=== PATIENT | female | born 1965 | race Caucasian/White ===

== ENCOUNTER 2024-06-10 16:06 | Emergency (ER) | payer SELFPAY ==
[2024-06-10 16:35] VITALS: BP 149/76; PULSE 68; RESP 19; TEMP 37.3; O2SAT 97; BMI 27.6
--- NOTE | 2024-06-10 16:47 | ED_ITS ---
Discharge Plan Disposition Patient Disposition: Home, Self-Care Condition: Good Prescriptions Prescriptions: New amoxicillin-pot clavulanate 875-125 mg Tablet 1 tab PO Q12H Qty: 20 0RF Referrals Follow up/Referrals: Provider,Referral, [Primary Care Provider] - See instructions Activity Restrictions/Add. Instructions Additional Instructions/Restrictions: Gargle warm salt water Take medication as prescribed Follow up with Dentist, call and make appointment Return if needed Straight to ER if any life threatening symptoms Clinical Impressions Clinical Impression: Dental infection Instructions Patient Instructions: Amoxicillin and Clavulanic Acid, DI for Tooth Abscess Print Language Print Language: Faroese Discharge ED Provider: Dottie Cano Cristian [facility] HPI General Stated complaint: right size jaw pain Mode of Arrival: Ambulatory Source of Information: Patient Limitations: No Limitations Time Seen by Provider: 06/10/24 16:47 Description of Symptoms (Recalled from Triage Doc. by RN): PATIENT C/O PAIN TO RIGHT CHEEK AREA SINCE YESTERDAY HEENT Symptoms (Recalled from RN notes): Yes Resp Symptoms (Recalled from RN notes): No Skin Symptoms (Recalled from RN notes): No MS Symptoms (Recalled from RN notes): No Functional Status (Recalled from RN notes): WNL History of Present Illness Provider Complaint: Patient states that she thinks she has a bad tooth States that she has several bad teeth on her right back and she has been having pain in her gum area and in her right upper jaw area States that she is new to the area and needs to find a dentist but hasnt done so yet Related Data Previous Rx's ?Medication ?Instructions ?Recorded amoxicillin 875 mg-potassium 1 tab PO Q12H #20 tabs 06/10/24 clavulanate 125 mg tablet Allergies Allergy/AdvReac Type Severity Reaction Status Date / Time egg Allergy Verified 11/20/23 15:42 Worker's Comp Is this a Worker's Comp case?: No [facility] Disclaimer: The information contained in this section may have been updated after the patient was seen, as this information can be updated by other users. Medical History (Updated 06/10/24 @ 16:59 by Dottie Cano APRN) No significant past medical history Social History Smoking Status: Unknown if ever smoked alcohol intake: never current occupational status: employed Travel in the last 8 weeks: None ROS Obtained: Yes All systems reviewed & no additional complaints except as documented and Yes Systems reviewed as appropriate & no additional complaints except as documented Constitutional Constitutional: Reports system reviewed and no additional complaints, except as documented and Reports as per HPI Eyes Eyes: Reports system reviewed and no additional complaints, except as documented and Reports as per HPI ENT Ears, Nose, Mouth, and Throat: Reports system reviewed and no additional complaints, except as documented, Reports as per HPI and Reports dental pain Comments: reports has several bad teeth in the back on her right upper, thinks she may have a dental infection Cardiovascular Cardiovascular: Reports system reviewed and no additional complaints, except as documented and Reports as per HPI Respiratory Respiratory: Reports system reviewed and no additional complaints, except as documented and Reports as per HPI Gastrointestinal Gastrointestingal: Reports system reviewed and no additional complaints, except as documented and as per HPI Physical Exam General General appearance: alert and in no apparent distress ENT ENT exam: Present mucous membranes moist Expanded ENT Exam Teeth exam: Present dental caries and other (multiple broken decaying teeth noted in right upper gumline with mild redness and swelling) Respiratory Respiratory exam: Present normal lung sounds bilaterally; Absent respiratory distress or wheezes Cardiovascular Cardiovascular exam: Present regular rate, normal rhythm and normal heart sounds Abdominal Exam Abdominal exam: Present soft and normal bowel sounds; Absent distention or tenderness Neurological Exam Neurological exam: Present alert, oriented X3 and normal gait Medical Decision Making Medical Records Screening: Per USPSTF and CDC recommendations, given the prevalence of disease in our region, it is our hospital?s policy to screen for HIV and viral Hepatitis for all patients aged 18 and over and those with ongoing risk factors. Boaz Inquiry Pt receiving controlled substance: No Boaz was queried for this patient: No Vital Signs: 06/10/24 16:35 Temperature 99.1 F Temperature Source Oral Pulse Rate [Left Brachial] 68 Respiratory Rate 19 Blood Pressure [Left Arm] 149/76 H Blood Pressure Mean [Left Arm] 100 Blood Pressure Source [Left Arm] Automatic Cuff Blood Pressure Position [Left Arm] Sitting 02 Sat by Pulse Oximetry 97 Oxygen Delivery Method Room Air Medical Decision Narrative: Patient states that she has a hx of her jaw popping in and out, patient able to open mouth and talk without difficutly states feels like it is tooth infected
[2024-06-10 17:01] VITALS: BP 149/76; PULSE 68; RESP 19; TEMP 37.3; O2SAT 97
== END 2024-06-10 17:04 | disposition home or self-care (01) ==
PROVIDERS: Emergency Provider Nurse Practitioner
DX: K04.7 Periapical abscess without sinus (principal); K08.89 Other specified disorders of teeth and supporting structures
CPT/HCPCS: 99212; G0381

== ENCOUNTER 2025-06-11 11:52 | Emergency (ER) | payer OTHER, SELFPAY ==
[2025-06-11] VITALS (9 sets, daily range): BP systolic 158–215; BP diastolic 98–113; PULSE 63–96; RESP 12–19; TEMP 36.6–36.7; O2SAT 96–100; BMI 24.7
--- NOTE | 2025-06-11 11:57 | HMH.EDGENADL ---
Discharge Plan Disposition Patient Disposition: Home, Self-Care Prescriptions Prescriptions: New amlodipine 5 mg tablet 5 mg PO DAILY Qty: 30 0RF No Action amoxicillin-pot clavulanate 875-125 mg Tablet 1 tab PO Q12H Qty: 20 0RF Referrals Follow up/Referrals: García Hernández MD [Primary Care Provider, Family Practice] - See instructions Activity Restrictions/Add. Instructions Additional Instructions/Restrictions: Increase fluids and rest. Take the meds as directed. Please follow-up Clinical Impressions Clinical Impression: Carbon monoxide exposure, Hypertension Instructions Patient Instructions: Carbon Monoxide Poisoning, DI for High Blood Pressure Print Language Print Language: [place] Islander Discharge ED Provider: Magali Beckwith General Adult HPI <Magali Beckwith MD - Last Filed: 06/11/25 14:25> General Chief complaint: Headache Stated complaint: High BP Time Seen by Provider: 06/11/25 11:56 History of Present Illness HPI narrative: Patient is a 59-year-old with past medical history Related Data Previous Rx's ?Medication ?Instructions ?Recorded amoxicillin 875 mg-potassium 1 tab PO Q12H #20 tabs 06/10/24 clavulanate 125 mg tablet amlodipine 5 mg tablet 5 mg PO DAILY #30 tabs 06/11/25 Allergies Allergy/AdvReac Type Severity Reaction Status Date / Time egg Allergy Verified 11/20/23 15:42 <Aida Pinedo (ED), TELEPHONE ORDER CLERK - Last Filed: 06/11/25 13:34> History of Present Illness HPI narrative: Patient is a 59-year-old with no past medical history. Patient was at her dentist getting her dentures today and they took her blood pressure several times and the readings were anywhere from 164/115 to 187/105 patient when I went in to assess her blood pressure was 207/113. She says she is petrified of dentists and was sick to her stomach because she was going to the dentist to get her dentures today. She says she feels fine. She does have a small headache in the frontal part of her head. She has had this for a little while. She says that she has been out of power for 12 days and have been using a daniel heater and she wonders if the headache is from the daniel heater. She takes no medications at home. She has not been diagnosed of hypertension. She otherwise feels well today. She is scared to have a stroke. [facility] <Magali Beckwith MD - Last Filed: 06/11/25 14:25> [facility] Disclaimer: The information contained in this section may have been updated after the patient was seen, as this information can be updated by other users. Medical History (Updated 06/11/25 @ 13:40 by Aida Pinedo (ED), TELEPHONE ORDER CLERK) No significant past medical history Social History (Updated 06/10/24 @ 16:59 by Dottie Cano TELEPHONE ORDER CLERK) Smoking Status: Current every day smoker alcohol intake: never current occupational status: employed Travel in the last 8 weeks?: None Have you lived/traveled outside US in past 30 days?: No Contact w/someone who lives/traveled outside US past 30 days?: No Exposure to someone with infectious disease in past 14 days?: No Do you have a fever (greater than 100.4 F or 38 C)?: No Have you tested positive for COVID-19?: No Exposed to someone with COVID-19 in past 14 days?: No Do you have a sore throat?: No Do you have a cough?: No Do you have any weakness?: No Do you have any diarrhea?: No Are you experiencing any unusual bleeding?: No Do you have any muscle aches/pain?: No Do you have any abdominal pain?: No Are you experiencing loss of taste or smell?: No Other Medical History Have you received the Flu Vaccine for this season: No Have you received the Pneumonia Vaccine: No <Aida Pinedo (ED), TELEPHONE ORDER CLERK - Last Filed: 06/11/25 13:34> ROS Obtained: Yes Systems reviewed as appropriate & no additional complaints except as documented Constitutional Constitutional: Reports as per HPI Physical Exam <Aida Pinedo (ED), TELEPHONE ORDER CLERK - Last Filed: 06/11/25 13:34> General General appearance: alert and in no apparent distress Head Head exam: normocephalic Eye Eye exam: Present PERRL and EOMI ENT ENT exam: Present normal oropharynx and mucous membranes moist Neck Neck exam: Present full ROM and trachea midline Respiratory Respiratory exam: Present normal lung sounds bilaterally Cardiovascular Cardiovascular exam: Present regular rate, normal rhythm, normal heart sounds, +S1 and +S2 Extremities Exam Extremities exam: Present full ROM and normal capillary refill Neurological Exam Neurological exam: Present alert and oriented X3 Skin Skin exam: Present warm and dry Medical Decision Making <Magali Beckwith MD - Last Filed: 06/11/25 14:25> Medical Records Screening: Per USPSTF and CDC recommendations, given the prevalence of disease in our region, it is our hospital?s policy to screen for HIV and viral Hepatitis for all patients aged 18 and over and those with ongoing risk factors. Vital Signs: 06/11/25 11:58 06/11/25 12:00 06/11/25 12:00 Temperature 97.8 F Temperature Source Oral Pulse Rate 96 H 92 H Pulse Rate [Right] 90 Respiratory Rate 18 Blood Pressure 215/113 H 207/113 H Blood Pressure [Right Arm] 215/113 H Blood Pressure Mean Blood Pressure Mean [Right Arm] 147 Blood Pressure Source Blood Pressure Source [Right Arm] Automatic Cuff Blood Pressure Position Blood Pressure Position [Right Arm] Sitting 02 Sat by Pulse Oximetry 98 97 96 Oxygen Delivery Method Room Air Oxygen Flow Rate (LPM) 06/11/25 12:15 06/11/25 12:30 06/11/25 12:30 Temperature Temperature Source Pulse Rate 95 H Pulse Rate [Right] Respiratory Rate 16 Blood Pressure 183/98 H Blood Pressure [Right Arm] Blood Pressure Mean 126 Blood Pressure Mean [Right Arm] Blood Pressure Source Blood Pressure Source [Right Arm] Blood Pressure Position Blood Pressure Position [Right Arm] 02 Sat by Pulse Oximetry 97 98 Oxygen Delivery Method Non-Rebreather Oxygen Flow Rate (LPM) 10 06/11/25 13:00 06/11/25 13:17 06/11/25 13:18 Temperature Temperature Source Pulse Rate 64 63 Pulse Rate [Right] Respiratory Rate 19 Blood Pressure 207/111 H 158/98 H Blood Pressure [Right Arm] Blood Pressure Mean 135 Blood Pressure Mean [Right Arm] Blood Pressure Source Blood Pressure Source [Right Arm] Blood Pressure Position Blood Pressure Position [Right Arm] 02 Sat by Pulse Oximetry 96 99 Oxygen Delivery Method Oxygen Flow Rate (LPM) 06/11/25 13:30 06/11/25 13:59 Temperature 98.0 F Temperature Source Oral Pulse Rate 74 71 Pulse Rate [Right] Respiratory Rate 12 18 Blood Pressure 173/102 H 173/102 H Blood Pressure [Right Arm] Blood Pressure Mean Blood Pressure Mean [Right Arm] Blood Pressure Source Automatic Cuff Blood Pressure Source [Right Arm] Blood Pressure Position Sitting Blood Pressure Position [Right Arm] 02 Sat by Pulse Oximetry 100 Oxygen Delivery Method Room Air Oxygen Flow Rate (LPM) Lab Data Lab Results 06/11/25 12:05: WBC 7.3, RBC 4.99, Hgb 15.1, Hct 45.9, MCV 92.0, MCH 30.3, MCHC 32.9, RDW 12.6, Plt Count 238, MPV 9.9, Neut % (Auto) 61.7, Lymph % (Auto) 30.4, [place] % (Auto) 6.1, Eos % (Auto) 1.1, Baso % (Auto) 0.4, Neut # (Auto) 4.5, Lymph # (Auto) 2.2, [place] # (Auto) 0.5, Eos # (Auto) 0.1, Baso # (Auto) 0.0, Sodium 145, Potassium 3.6, Chloride 106, Carbon Dioxide 26, BUN 11, Creatinine 0.70, Estimated Creat Clear 87, Estimated GFR 86, Est GFR ( Amer) 104, Glucose 101 H, Calcium 9.0, Magnesium 2.4 H, Total Bilirubin 0.8, AST 25, ALT 16, Alkaline Phosphatase 64, Troponin I < 0.01, Total Protein 8.3 H, Albumin 5.0, Globulin 3.3 H, Albumin/Globulin Ratio 1.5, Lipase 145 06/11/25 12:11: Carboxyhemoglobin 11.7 H* 06/11/25 13:14: Carboxyhemoglobin 7.9 H* 06/11/25 12:05 06/11/25 12:05 Orders (Tests/Meds): ED MEDICATIONS Discontinued Medications Generic Name Dose Route Start Last Admin Trade Name Freq PRN Reason Stop Dose Admin Acetaminophen 1,000 mg 06/11/25 12:14 06/11/25 12:21 Acetaminophen 1,000mg/100ml Vial IV 06/11/25 12:15 1,000 mg ONCE ONE Administration Amlodipine Besylate 5 mg 06/11/25 12:09 06/11/25 12:17 Amlodipine 5mg Tablet PO 06/11/25 12:10 5 mg ONCE ONE Administration Sodium Chloride 1,000 mls @ 999 mls/hr 06/11/25 12:14 06/11/25 13:35 Sod Chlor 0.9% 1000ml Bag IV 06/11/25 13:14 Infused .Q1H1M ONE Infusion Sodium Chloride 10 ml 06/11/25 11:56 Sodium Chloride 0.9% 10ml Flush Syringe IV 07/11/25 11:55 NEEDED PRN Maintain IV Site ORDERS Category Date Time Status CBC w/Auto Diff [Complete Blood Count Auto Diff] Stat Lab 06/11/25 12:05 Completed Comprehensive Metabolic Panel Stat Lab 06/11/25 12:05 Results Lipase Stat Lab 06/11/25 12:05 Results Magnesium Stat Lab 06/11/25 12:05 Results Troponin I Stat Lab 06/11/25 12:05 Completed Carboxyhemoglobin Stat RT 06/11/25 12:11 Completed Carboxyhemoglobin Stat RT 06/11/25 13:14 Completed ECG Request Stat Y 06/11/25 11:56 Stop Req Medical Decision Narrative: patient is a 59-year-old female presenting to the emergency department for evaluation of elevated blood pressure at the dentist today, headache. Patient is hemodynamically stable and nontoxic-appearing upon arrival, afebrile. Differential diagnosis includes, carbon monoxide poisoning, hypertension, medical anxiety, among others. Workup will be conducted with hematologic labs including a carboxy hemoglobin. Initial inventions include crystalloid bolus, analgesic and oxygen. 1318 recheck blood pressure was 158/98. Patient got up to go to the bathroom and feels better. We just sent her new carboxyhemoglobin after an hour of nonrebreather. Hoping that her number is at least under 10. We have already discussed with her that she should not go back to the [facility] that she has been staying in. Dr. Beckwith saw patient as well. Patient's labs came back as white count 7.3 other labs on the CBC were normal, carboxyhemoglobin was 11.7 so we placed patient on nonrebreather for an hour to bring that down under 10. The electrolytes were normal. Troponin was less than 0.01.No imaging was required at this visit. It was considered but not required. We got her carboxyhemoglobin back and her second 1 was 7.9. She feels much improved and is ready to go home. I have re iterated that she needs to remove the heater from her home. Get new heating. Patient will be discharged home with blood pressure meds. She takes this amlodipine until she sees Dr. Llamas on Saturday. I was consulted by the VIC, and we discussed the complexity of problems being addressed. I approved the treatment and management plan for this patient's care in the emergency department, thus performing a substantial portion of the medical decision making. Magali Beckwith MD <Aida Pinedo (ED), TELEPHONE ORDER CLERK - Last Filed: 06/11/25 13:34> Boaz Inquiry Pt receiving controlled substance: No Boaz was queried for this patient: No Vital Signs: 06/11/25 11:58 06/11/25 12:00 06/11/25 12:00 Temperature 97.8 F Temperature Source Oral Pulse Rate 96 H 92 H Pulse Rate [Right] 90 Respiratory Rate 18 Blood Pressure 215/113 H 207/113 H Blood Pressure [Right Arm] 215/113 H Blood Pressure Mean Blood Pressure Mean [Right Arm] 147 Blood Pressure Source Blood Pressure Source [Right Arm] Automatic Cuff Blood Pressure Position Blood Pressure Position [Right Arm] Sitting 02 Sat by Pulse Oximetry 98 97 96 Oxygen Delivery Method Room Air Oxygen Flow Rate (LPM) 06/11/25 12:15 06/11/25 12:30 06/11/25 12:30 Temperature Temperature Source Pulse Rate 95 H Pulse Rate [Right] Respiratory Rate 16 Blood Pressure 183/98 H Blood Pressure [Right Arm] Blood Pressure Mean 126 Blood Pressure Mean [Right Arm] Blood Pressure Source Blood Pressure Source [Right Arm] Blood Pressure Position Blood Pressure Position [Right Arm] 02 Sat by Pulse Oximetry 97 98 Oxygen Delivery Method Non-Rebreather Oxygen Flow Rate (LPM) 10 06/11/25 13:00 06/11/25 13:17 06/11/25 13:18 Temperature Temperature Source Pulse Rate 64 63 Pulse Rate [Right] Respiratory Rate 19 Blood Pressure 207/111 H 158/98 H Blood Pressure [Right Arm] Blood Pressure Mean 135 Blood Pressure Mean [Right Arm] Blood Pressure Source Blood Pressure Source [Right Arm] Blood Pressure Position Blood Pressure Position [Right Arm] 02 Sat by Pulse Oximetry 96 99 Oxygen Delivery Method Oxygen Flow Rate (LPM) 06/11/25 13:30 06/11/25 13:59 Temperature 98.0 F Temperature Source Oral Pulse Rate 74 71 Pulse Rate [Right] Respiratory Rate 12 18 Blood Pressure 173/102 H 173/102 H Blood Pressure [Right Arm] Blood Pressure Mean Blood Pressure Mean [Right Arm] Blood Pressure Source Automatic Cuff Blood Pressure Source [Right Arm] Blood Pressure Position Sitting Blood Pressure Position [Right Arm] 02 Sat by Pulse Oximetry 100 Oxygen Delivery Method Room Air Oxygen Flow Rate (LPM) Lab Data Lab Results 06/11/25 12:05: WBC 7.3, RBC 4.99, Hgb 15.1, Hct 45.9, MCV 92.0, MCH 30.3, MCHC 32.9, RDW 12.6, Plt Count 238, MPV 9.9, Neut % (Auto) 61.7, Lymph % (Auto) 30.4, [place] % (Auto) 6.1, Eos % (Auto) 1.1, Baso % (Auto) 0.4, Neut # (Auto) 4.5, Lymph # (Auto) 2.2, [place] # (Auto) 0.5, Eos # (Auto) 0.1, Baso # (Auto) 0.0, Sodium 145, Potassium 3.6, Chloride 106, Carbon Dioxide 26, BUN 11, Creatinine 0.70, Estimated Creat Clear 87, Estimated GFR 86, Est GFR ( Amer) 104, Glucose 101 H, Calcium 9.0, Magnesium 2.4 H, Total Bilirubin 0.8, AST 25, ALT 16, Alkaline Phosphatase 64, Troponin I < 0.01, Total Protein 8.3 H, Albumin 5.0, Globulin 3.3 H, Albumin/Globulin Ratio 1.5, Lipase 145 06/11/25 12:11: Carboxyhemoglobin 11.7 H* 06/11/25 13:14: Carboxyhemoglobin 7.9 H* Orders (Tests/Meds): ED MEDICATIONS Discontinued Medications Generic Name Dose Route Start Last Admin Trade Name Freq PRN Reason Stop Dose Admin Acetaminophen 1,000 mg 06/11/25 12:14 06/11/25 12:21 Acetaminophen 1,000mg/100ml Vial IV 06/11/25 12:15 1,000 mg ONCE ONE Administration Amlodipine Besylate 5 mg 06/11/25 12:09 06/11/25 12:17 Amlodipine 5mg Tablet PO 06/11/25 12:10 5 mg ONCE ONE Administration Sodium Chloride 1,000 mls @ 999 mls/hr 06/11/25 12:14 06/11/25 13:35 Sod Chlor 0.9% 1000ml Bag IV 06/11/25 13:14 Infused .Q1H1M ONE Infusion Sodium Chloride 10 ml 06/11/25 11:56 Sodium Chloride 0.9% 10ml Flush Syringe IV 07/11/25 11:55 NEEDED PRN Maintain IV Site ORDERS Category Date Time Status CBC w/Auto Diff [Complete Blood Count Auto Diff] Stat Lab 06/11/25 12:05 Completed Comprehensive Metabolic Panel Stat Lab 06/11/25 12:05 Results Lipase Stat Lab 06/11/25 12:05 Results Magnesium Stat Lab 06/11/25 12:05 Results Troponin I Stat Lab 06/11/25 12:05 Completed Carboxyhemoglobin Stat RT 06/11/25 12:11 Completed Carboxyhemoglobin Stat RT 06/11/25 13:14 Completed ECG Request Stat Y 06/11/25 11:56 Stop Req Medical Decision Narrative: patient is a 59-year-old female presenting to the emergency department for evaluation of elevated blood pressure at the dentist today, headache. Patient is hemodynamically stable and nontoxic-appearing upon arrival, afebrile. Differential diagnosis includes, carbon monoxide poisoning, hypertension, medical anxiety, among others. Workup will be conducted with hematologic labs including a carboxy hemoglobin. Initial inventions include crystalloid bolus, analgesic and oxygen. 1318 recheck blood pressure was 158/98. Patient got up to go to the bathroom and feels better. We just sent her new carboxyhemoglobin after an hour of nonrebreather. Hoping that her number is at least under 10. We have already discussed with her that she should not go back to the [facility] that she has been staying in. Dr. Beckwith saw patient as well. Patient's labs came back as white count 7.3 other labs on the CBC were normal, carboxyhemoglobin was 11.7 so we placed patient on nonrebreather for an hour to bring that down under 10. The electrolytes were normal. Troponin was less than 0.01.No imaging was required at this visit. It was considered but not required. We got her carboxyhemoglobin back and her second 1 was 7.9. She feels much improved and is ready to go home. I have re iterated that she needs to remove the heater from her home. Get new heating. Patient will be discharged home with blood pressure meds. She takes this amlodipine until she sees Dr. Llamas on Saturday. Critical Care <Aida Pinedo (ED), TELEPHONE ORDER CLERK - Last Filed: 06/11/25 13:34> Critical Care Time Critical Care Time: No
--- NOTE | 2025-06-11 12:15 | PC.NURSE ---
RT notified of carboxyhemoglobin
[2025-06-11] MEDS: AMLODIPINE 5MG TABLET 5 MG PO (12:17)
[2025-06-11 12:19] LABS: Hematocrit 45.9 % (37.0-47.0); Hemoglobin 15.1 g/dL (12.2-16.2); Immature Granulocytes % 0.3 %; Mean Corpuscular HGB Conc 32.9 g/dL (31.8-35.4); Mean Corpuscular Hemoglobin 30.3 pg (27.0-31.2); Mean Corpuscular Volume 92.0 fl (81-99); Nucleated Red Blood Cells % 0 %; Platelet Count 238 K/mm3 (142-424); Red Blood Count 4.99 M/mm3 (4.20-5.40); Red Cell Distribution Width-SD 42.6 fL; White Blood Count 7.3 K/mm3 (4.8-10.8)
[2025-06-11] MEDS: 0.9 % SODIUM CHLORIDE 1000ML 1,000 ML 999 ML IV (12:21)
[2025-06-11] MEDS: ACETAMINOPHEN 1,000MG/100ML VIAL 1000 MG IV (12:21)
[2025-06-11 12:22] LABS: Carboxyhemoglobin 11.7 (0.0-5.0)
--- NOTE | 2025-06-11 12:30 | PC.NURSE ---
NRB placed at 10L per Tang REECE order
[2025-06-11 12:32] LABS: Albumin Level 5.0 g/dl (3.5-5.0); Chloride 106 mmol/L (98-107)
[2025-06-11 12:33] LABS: Potassium 3.6 mmoL/L (3.5-5.1); Sodium 145 mmol/L (136-145)
[2025-06-11 12:35] LABS: Alanine Aminotransferase 16 U/L (12-78); Alkaline Phosphatase 64 U/L (38-126); Aspartate Amino Transferase 25 U/L (14-36); Bilirubin,Total 0.8 mg/dl (0.2-1.3); Blood Urea Nitrogen 11 mg/dl (7-17); Creatinine Clearance Estimated 87 mL/min (50-200); Creatinine,Serum 0.70 mg/dl (0.52-1.04); Estimated Glomerular Filt Rate 86 ml/min (>60); GFR (African American) 104 ML/MIN (>60); Total Protein,Serum 8.3 g/dl (6.3-8.2)
[2025-06-11 12:36] LABS: Albumin/Globulin Ratio 1.5 (1.1-1.8); Calcium 9.0 mg/dl (8.4-10.2); Globulin 3.3 g/dL (1.3-3.2); Glucose 101 mg/dl (74-100); Lipase 145 U/L (23-300); Magnesium 2.4 mg/dl (1.6-2.3)
[2025-06-11 12:38] LABS: Troponin I < 0.01 ng/ml (0.00-0.034)
--- NOTE | 2025-06-11 13:22 | PC.NURSE ---
Pt ambulatory to the bathroom with a steady gate
[2025-06-11 13:23] LABS: Carboxyhemoglobin 7.9 (0.0-5.0)
[2025-06-11 16:05] LABS: Anion Gap 16.6 mEq/L (5-15); Carbon Dioxide 26 mmol/L (22.0-30.0)
== END 2025-06-11 14:00 | disposition home or self-care (01) ==
PROVIDERS: Nurse Practitioner; Emergency Provider Student in an Organized Health Care Education/Training Program; PCP Family Medicine
DX: R79.81 Abnormal blood-gas level (principal); R51.9 Headache, unspecified; I10 Essential (primary) hypertension; Z77.29 Contact with and (suspected) exposure to other hazardous substances
CPT/HCPCS: 80053; 82375; 83690; 83735; 84484; 85025; 93005; 96361; 96374; 99285; J0131; J7030

== ENCOUNTER 2025-06-15 07:15 | Emergency (ER) | payer OTHER, SELFPAY ==
[2025-06-15 07:25] VITALS: BP 181/108; PULSE 104; RESP 19; TEMP 36.6; O2SAT 99; BMI 24.7
[2025-06-15 07:30] VITALS: BP 160/102; PULSE 90; O2SAT 99
--- NOTE | 2025-06-15 07:32 | XR_ITS ---
FINAL REPORT CLINICAL HISTORY: Chest discomfort FINDINGS: A portable view of the chest is obtained. There is no prior exam for comparison. Cardiac and mediastinal silhouettes are normal. The lungs are clear. There is no pleural effusion or pneumothorax. IMPRESSION: No acute process on this portable exam. Reviewed, Interpreted and Dictated by Sumi Menard MD Transcribed by Saskia Chase Authenticated and [facility]
--- NOTE | 2025-06-15 07:32 | HMH.EDGENADL ---
Discharge Plan Disposition Patient Disposition: Home, Self-Care Prescriptions Prescriptions: No Action amoxicillin-pot clavulanate 875-125 mg Tablet 1 tab PO Q12H Qty: 20 0RF amlodipine 5 mg tablet 5 mg PO DAILY Qty: 30 0RF Referrals Follow up/Referrals: García Hernández MD [Primary Care Provider, Family Practice] - See instructions Activity Restrictions/Add. Instructions Additional Instructions/Restrictions: Your blood pressure continues to be elevated. I encourage you to follow-up with your primary care doctor this afternoon for your elevated blood pressure. Your carbon oxide level was slightly elevated I do encourage you to avoid staying in close spaces with propane heaters if possible as this can lead to carbon oxide poisoning. If you develop any new or worsening symptoms, such as headache, confusion, nausea or vomiting, return to the emergency department for evaluation. Clinical Impressions Clinical Impression: Hypertension Print Language Print Language: Slovak Discharge ED Provider: Donte Wolf Adult HPI General Chief complaint: PAIN Stated complaint: High Blood Pressure Time Seen by Provider: 06/15/25 07:34 History of Present Illness HPI narrative: Mari Green is a 59-year-old female who presents to the emergency department for complaints of elevated blood pressure. Patient states that she was seen in the emergency department on Saturday and had been using a body heater in her RV and had a headache and elevated blood pressure at that time. She was told that her carbon oxide level was elevated she was treated with oxygen and her symptoms improved. She states that since then, she has mainly been staying with her son but intermittently goes in and out of her RV that uses a propane heater. She states that she spent some time in there last night and developed a mild headache that has since resolved. She states that she went back into the RV this morning and checked her blood pressure and it was elevated when she got to work this morning to over 200 systolic. She states that on Saturday she was prescribed blood pressure medication that she has been taking daily. She states that she has not had issues with her blood pressure before. She denies any blurry vision, nausea, vomiting, diarrhea or fever. She states that she has a funny feeling in my chest but denies any shortness of breath. She notes that she has an appointment with her primary care doctor at 1:00 this afternoon Related Data Previous Rx's ?Medication ?Instructions ?Recorded amoxicillin 875 mg-potassium 1 tab PO Q12H #20 tabs 06/10/24 clavulanate 125 mg tablet amlodipine 5 mg tablet 5 mg PO DAILY #30 tabs 06/11/25 Allergies Allergy/AdvReac Type Severity Reaction Status Date / Time egg Allergy Verified 11/20/23 15:42 [facility] Disclaimer: The information contained in this section may have been updated after the patient was seen, as this information can be updated by other users. Medical History (Updated 06/15/25 @ 08:33 by Donte Wolf MD) No significant past medical history Social History (Updated 06/10/24 @ 16:59 by Dottie Cano APRN) Smoking Status: Current every day smoker alcohol intake: never current occupational status: employed Travel in the last 8 weeks?: None Have you lived/traveled outside [place] in past 30 days?: No Contact w/someone who lives/traveled outside [place] past 30 days?: No Exposure to someone with infectious disease in past 14 days?: No Do you have a fever (greater than 100.4 F or 38 C)?: No Have you tested positive for COVID-19?: No Exposed to someone with COVID-19 in past 14 days?: No Do you have a sore throat?: No Do you have a cough?: No Do you have any weakness?: No Do you have any diarrhea?: No Are you experiencing any unusual bleeding?: No Do you have any muscle aches/pain?: No Do you have any abdominal pain?: No Are you experiencing loss of taste or smell?: No Other Medical History Have you received the Flu Vaccine for this season: No Have you received the Pneumonia Vaccine: No ROS Obtained: Yes Systems reviewed as appropriate & no additional complaints except as documented Physical Exam General General appearance: alert, in no apparent distress and anxious Head Head exam: atraumatic Eye Eye exam: Present normal appearance ENT ENT exam: Present normal external ear exam Neck Neck exam: Present full ROM Chest Chest inspection: Present symmetric chest wall rise Respiratory Respiratory exam: Present normal lung sounds bilaterally; Absent respiratory distress, wheezes or stridor Cardiovascular Cardiovascular exam: Present regular rate and normal rhythm Abdominal Exam Abdominal exam: Present soft; Absent tenderness or guarding Extremities Exam Extremities exam: Present normal inspection Back Exam Back exam: Present normal inspection Neurological Exam Neurological exam: Present alert and oriented X3 Psychiatric Psychiatric exam: Present normal affect Skin Skin exam: Present warm and dry Medical Decision Making Medical Records Screening: Per USPSTF and CDC recommendations, given the prevalence of disease in our region, it is our hospital?s policy to screen for HIV and viral Hepatitis for all patients aged 18 and over and those with ongoing risk factors. [place] Inquiry Pt receiving controlled substance: No Vital Signs: 06/15/25 07:25 06/15/25 07:30 06/15/25 08:00 Temperature 97.9 F Temperature Source Oral Pulse Rate 90 84 Pulse Rate [Left Radial] 104 H Respiratory Rate 19 Blood Pressure 160/102 H 166/99 H Blood Pressure [Right Arm] 181/108 H Blood Pressure Mean [Right Arm] 132 02 Sat by Pulse Oximetry 99 99 98 Oxygen Delivery Method Room Air 06/15/25 08:22 Temperature Temperature Source Pulse Rate 88 Pulse Rate [Left Radial] Respiratory Rate Blood Pressure 165/105 H Blood Pressure [Right Arm] Blood Pressure Mean [Right Arm] 02 Sat by Pulse Oximetry 98 Oxygen Delivery Method Lab Data Lab Results 06/15/25 07:25: WBC 9.3, RBC 4.90, Hgb 15.2, Hct 45.5, MCV 92.9, MCH 31.0, MCHC 33.4, RDW 12.5, Plt Count 251, MPV 9.8, Neut % (Auto) 71.5, Lymph % (Auto) 21.1, Gaines % (Auto) 5.6, Eos % (Auto) 1.1, Baso % (Auto) 0.4, Neut # (Auto) 6.6, Lymph # (Auto) 2.0, Gaines # (Auto) 0.5, Eos # (Auto) 0.1, Baso # (Auto) 0.0, Sodium 139, Potassium 4.0, Chloride 109 H, Carbon Dioxide 24, Anion Gap 10.0, BUN 11, Creatinine 0.70, Estimated Creat Clear 87, Estimated GFR 86, Est GFR ( Amer) 104, Glucose 104 H, Calcium 8.9, Total Bilirubin 0.8, AST 25, ALT 19, Alkaline Phosphatase 74, Troponin I < 0.01, Total Protein 8.4 H, Albumin 5.0, Globulin 3.4 H, Albumin/Globulin Ratio 1.5 06/15/25 07:40: Carboxyhemoglobin 9.2 H* 06/15/25 07:25 06/15/25 07:25 Orders (Tests/Meds): ORDERS Category Date Time Status CXR --portable [XR chest portable] Stat Exams 06/15/25 07:32 Taken CBC w/Auto Diff [Complete Blood Count Auto Diff] Stat Lab 06/15/25 07:25 Completed CMP [Comprehensive Metabolic Panel] Stat Lab 06/15/25 07:25 Completed HIV Combo Routine Lab 06/15/25 07:25 Received Hepatitis C Ab Qual. W/ RFX Routine Lab 06/15/25 07:25 Received Troponin I Q3H Lab 06/15/25 10:45 Ordered Troponin I Q3H Lab 06/15/25 13:45 Ordered Troponin I Stat Lab 06/15/25 07:25 Completed Carboxyhemoglobin Stat RT 06/15/25 07:40 Completed EKG Request [ECG Request] Stat Y 06/15/25 07:31 Ordered ECG Data Tracing #1: I reviewed this ECG and interpreted as documented below: Normal sinus rhythm. No ST elevation or depression. QTc normal at 421 Medical Decision Narrative: Mari Green is a 59-year-old female who presents to the emergency department for complaints of elevated blood pressure. Patient states that she was seen in the emergency department on Saturday and had been using a body heater in her RV and had a headache and elevated blood pressure at that time. She was told that her carbon oxide level was elevated she was treated with oxygen and her symptoms improved. She states that since then, she has mainly been staying with her son but intermittently goes in and out of her RV that uses a propane heater. She states that she spent some time in there last night and developed a mild headache that has since resolved. She states that she went back into the RV this morning and checked her blood pressure and it was elevated when she got to work this morning to over 200 systolic. She states that on Saturday she was prescribed blood pressure medication that she has been taking daily. She states that she has not had issues with her blood pressure before. She denies any blurry vision, nausea, vomiting, diarrhea or fever. She states that she has a funny feeling in my chest but denies any shortness of breath. She notes that she has an appointment with her primary care doctor at 1:00 this afternoon. On arrival, patient is hypertensive with blood pressure 160/102. Patient did state that she took her blood pressure medication this morning. Heart rate within normal limits. Oxygen saturation within normal limits. Differential diagnosis includes, but is not limited to: Uncontrolled essential hypertension, low concern for carbon oxide poisoning given patient does not have a headache at this time but will obtain carboxyhemoglobin level, ACS, among others. The most morbid conditions were considered and workup was based on these. Workup in the Emergency Department included: EKG, chest x-ray, hematologic labs, carboxyhemoglobin level. EKG showed normal sinus rhythm without evidence of ischemia. See interpretation above. Patient's carboxyhemoglobin level is 9.2. Given she does not have a headache and it is less than 10, I do not feel that treat with oxygen therapy is indicated at this time. CBC is unremarkable. CMP is also unremarkable nonactionable with a troponin less than 0.01. On reassessment, patient has remained hypertensive but overall asymptomatic. I do feel that she is appropriate discharge at this time given close follow-up with her primary care doctor this afternoon. Encouraged her to avoid staying in enclosed spaces with propane heaters due to risk of carbon oxide exposure/toxicity. Strict return precautions were given for any signs of toxicity. All questions were answered. She demonstrated understanding and was in agreement this plan. She was then discharged from the emergency department in stable condition. Critical Care Critical Care Time Critical Care Time: No
[2025-06-15 07:39] LABS: Hematocrit 45.5 % (37.0-47.0); Hemoglobin 15.2 g/dL (12.2-16.2); Immature Granulocytes % 0.3 %; Mean Corpuscular HGB Conc 33.4 g/dL (31.8-35.4); Mean Corpuscular Hemoglobin 31.0 pg (27.0-31.2); Mean Corpuscular Volume 92.9 fl (81-99); Nucleated Red Blood Cells % 0 %; Platelet Count 251 K/mm3 (142-424); Red Blood Count 4.90 M/mm3 (4.20-5.40); Red Cell Distribution Width-SD 43.4 fL; White Blood Count 9.3 K/mm3 (4.8-10.8)
--- NOTE | 2025-06-15 07:39 | ECG_ITS ---
APPROVED REPORT Exam: Resting ECG HR:90 bpm ECG Measurements Heart Rate 90 AXES MT 146 P 68 QRSd 111 QRS 92 QT 374 T 34 QTc 421 Conclusion SINUS RHYTHM BORDERLINE RIGHT AXIS DEVIATION [QRS AXIS > 90] INCOMPLETE RIGHT BUNDLE BRANCH BLOCK [90+ ms QRS DURATION, TERMINAL R IN V1/V2, 40+ ms S IN I/aVL/V4/V5/V6] BORDERLINE ECG UNCONFIRMED REPORT Normal sinus rhythm. No STEMI Electronically signed by : MIRLANDE TOBAR, 06/15/2025 12:38:14
[2025-06-15 07:44] LABS: Carboxyhemoglobin 9.2 (0.0-5.0)
[2025-06-15 07:55] LABS: Chloride 109 mmol/L (98-107)
[2025-06-15 07:56] LABS: Albumin Level 5.0 g/dl (3.5-5.0); Potassium 4.0 mmoL/L (3.5-5.1); Sodium 139 mmol/L (136-145)
[2025-06-15 07:58] LABS: Blood Urea Nitrogen 11 mg/dl (7-17); Creatinine Clearance Estimated 87 mL/min (50-200); Creatinine,Serum 0.70 mg/dl (0.52-1.04); Estimated Glomerular Filt Rate 86 ml/min (>60); GFR (African American) 104 ML/MIN (>60)
[2025-06-15 07:59] LABS: Alanine Aminotransferase 19 U/L (12-78); Albumin/Globulin Ratio 1.5 (1.1-1.8); Alkaline Phosphatase 74 U/L (38-126); Anion Gap 10.0 mEq/L (5-15); Aspartate Amino Transferase 25 U/L (14-36); Bilirubin,Total 0.8 mg/dl (0.2-1.3); Calcium 8.9 mg/dl (8.4-10.2); Carbon Dioxide 24 mmol/L (22.0-30.0); Globulin 3.4 g/dL (1.3-3.2); Glucose 104 mg/dl (74-100); Total Protein,Serum 8.4 g/dl (6.3-8.2)
[2025-06-15 08:00] VITALS: BP 166/99; PULSE 84; O2SAT 98
--- NOTE | 2025-06-15 08:10 | PC.NURSE ---
call made to lab to check on status of cmp
[2025-06-15 08:12] LABS: Troponin I < 0.01 ng/ml (0.00-0.034)
[2025-06-15 08:22] VITALS: BP 165/105; PULSE 88; O2SAT 98
--- NOTE | 2025-06-15 08:23 | PC.NURSE ---
call made to rad to check on prelim, they will fax one down
[2025-06-15 08:55] VITALS: BP 180/107; PULSE 84; RESP 18; TEMP 36.6; O2SAT 99
[2025-06-15 10:26] LABS: Hepatitis C Ab Qual. W/ RFX NEGATIVE (Negative)
== END 2025-06-15 08:57 | disposition home or self-care (01) ==
PROVIDERS: Emergency Provider Student in an Organized Health Care Education/Training Program; PCP Family Medicine
DX: R51.9 Headache, unspecified (principal); R79.81 Abnormal blood-gas level; I10 Essential (primary) hypertension; Z77.29 Contact with and (suspected) exposure to other hazardous substances; Z87.891 Personal history of nicotine dependence
CPT/HCPCS: 71045; 80053; 82375; 84484; 85025; 86803; 87389; 93005; 99284

== ENCOUNTER 2025-06-22 07:09 | Outpatient (CLI) | payer OTHER, SELFPAY ==
[2025-06-22 08:46] LABS: Chloride 105 mmol/L (98-107); Potassium 4.3 mmoL/L (3.5-5.1); Sodium 140 mmol/L (136-145)
[2025-06-22 08:49] LABS: Anion Gap 14.3 mEq/L (5-15); Blood Urea Nitrogen 13 mg/dl (7-17); Carbon Dioxide 25 mmol/L (22.0-30.0); Creatinine,Serum 0.70 mg/dl (0.52-1.04); Estimated Glomerular Filt Rate 86 ml/min (>60); GFR (African American) 104 ML/MIN (>60)
[2025-06-22 08:50] LABS: Calcium 9.8 mg/dl (8.4-10.2); Glucose 100 mg/dl (74-100)
== END 2025-06-22 23:59 | disposition home or self-care (01) ==
PROVIDERS: PCP Family Medicine; Visit Provider Student in an Organized Health Care Education/Training Program
DX: I10 Essential (primary) hypertension (principal)
CPT/HCPCS: 36415; 80048